=== PATIENT | male | born 1980 | race Hispanic/Latino ===

== ENCOUNTER 2020-12-15 11:32 | Emergency (ER) | payer OTHER ==
[~2020-12-15] VITALS: Ht 180.3 cm; Wt 104.3 kg
[2020-12-15] MEDS: CASIRIVIMAB/IMDEVIMAB 10 ML in SODIUM CHLORIDE 0.9% 100 ML IV ONE (13:13)
[2020-12-15] MEDS: ACETAMINOPHEN 325 MG TAB PO ONE (13:14)
== END 2020-12-15 18:49 | disposition home or self-care (01) ==
LOC: ER 11:51
DX: U07.1 COVID-19 (principal)
CPT/HCPCS: 99283; J7050

== ENCOUNTER 2020-12-15 20:40 | Emergency (ER) | payer SELFPAY ==
[~2020-12-15] VITALS: Ht 180.3 cm; Wt 104.3 kg
[2020-12-15] MEDS: ACETAMINOPHEN 325 MG TAB PO ONE (22:25)
== END 2020-12-15 23:42 | disposition home or self-care (01) ==
LOC: ER 22:27
DX: U07.1 COVID-19 (principal)
CPT/HCPCS: 99283